=== PATIENT | male | born 1940 | race Caucasian/White ===

== ENCOUNTER 2017-05-10 10:21 | Day surgery (SDC) | payer MEDICARE ==
[2017-05-10] VITALS (18 sets, daily range): BP systolic 144–172; BP diastolic 69–85; PULSE 55–72; RESP 14–19; TEMP 97.7–98.3; O2SAT 93–98
[~2017-05-10] VITALS: Ht 177.8 cm; Wt 95.8 kg
[~2017-05-10 10:21] MED LIST: AMLO10TA2; ASPI81TA81; ATOR10TA15; CARV25TA; FISHCAP4 PO; GABA300C5; GABA300C5 PO; LOSA50TA; OXYC1TAB36; SERT-129
[2017-05-10] MEDS ORDERED: IOHEXOL 350 MG/ML 100 ML BTL (for Cath Lab) OTHER ONE (10:22)
[2017-05-10] MEDS ORDERED: NS 1000P @30 MLS/HR (KVO) IV SCH (11:00)
[2017-05-10] MEDS ORDERED: ASPIRIN 81 MG CHEW TAB PO SCH (11:15)
[2017-05-10 11:22] LABS: AUTOMATED NEUTROPHIL # 3.1 TH/MM3 (1.8-7.7); BASOPHIL % 0.9 % (0.0-2.0); EOSINOPHIL # 0.2 TH/MM3 (0-0.4); EOSINOPHIL % 3.2 % (0.0-4.0); HEMATOCRIT 37.4 % (39.0-51.0); HEMO FLAGS DIFF FINAL; LYMPHOCYTE # 1.7 TH/MM3 (1.0-4.8); MEAN CELL VOLUME 90.1 FL (80.0-100.0); MEAN CORPUSCULAR HGB CONC 34.4 % (32.0-36.0); NEUT % 54.9 % (16.0-70.0); PLATELET COUNT 199 TH/MM3 (150-450); RED BLOOD COUNT 4.14 MIL/MM3 (4.50-5.90); RED CELL DISTRIBUTION WIDTH 12.6 % (11.6-17.2); WHITE BLOOD COUNT 5.6 TH/MM3 (4.0-11.0)
[2017-05-10 11:27] LABS: INTERNATIONAL NORMALIZED RATIO 1.1 RATIO; PROTHROMBIN TIME - PATIENT 11.7 SEC (9.8-11.6)
[2017-05-10 11:35] LABS: BICARBONATE 27.1 MEQ/L (21.0-32.0); POTASSIUM 4.1 MEQ/L (3.5-5.1)
[2017-05-10] MEDS ORDERED: ATOR10TA15 PO (11:38)
[2017-05-10] MEDS ORDERED: CARV25TA PO (11:38)
[2017-05-10] MEDS ORDERED: CALC250T PO (11:38)
[2017-05-10] MEDS ORDERED: LOSA50TA PO (11:38)
[2017-05-10] MEDS ORDERED: ZOLO100T PO (11:38)
[2017-05-10] MEDS ORDERED: POTASOL PO (11:38)
[2017-05-10] MEDS ORDERED: PERC10TA27 PO (11:38)
[2017-05-10] MEDS ORDERED: ECASA81 PO (11:38)
[2017-05-10] MEDS ORDERED: AMLO5 PO (11:38)
[2017-05-10] MEDS ORDERED: NITR400A3 SL (11:38)
[2017-05-10] MEDS ORDERED: GABA300C5 PO (11:38)
[2017-05-10] MEDS ORDERED: VITA100064 PO (11:38)
[2017-05-10] MEDS ORDERED: HEPARIN-NS/PF INJ 1,000 ML ONE (11:49)
[2017-05-10] MEDS ORDERED: MIDAZOLAM HCL 2 MG/2 ML VIAL ONE (11:53)
[2017-05-10] MEDS ORDERED: FUROSEMIDE 40 MG/4 ML VIAL ONE (12:34)
[2017-05-10] MEDS ORDERED: HEPARIN SODIUM - IV 10,000 UNITS/10 ML VIAL ONE (12:51)
[2017-05-10] MEDS ORDERED: TIROFIBAN INFUSION INJ 250 ML IV ONE (13:02)
[2017-05-10] MEDS ORDERED: CLOPIDOGREL 300 MG TAB ONE (13:02)
--- NOTE | 2017-05-10 13:17 | CATHPROC ---
[facility] HIS Report Study Information Study Number Admission Scheduled Start Study Start [id number] May 10 2017 10:21AM 05/10/2017 May 10 2017 11:41AM [place] [facility] Catheterization Admit Source Facility Department Other [facility] - Electrical Design Engineer Physician and Clinical Staff Initial Glynn Sanchez Probation ManagerSatya Rodriguez,DEBBIE Probation ManagerDorcas Deluna RN Other cathlab, cathlab Recorder Donta Flores RCIS(BS) Scrub Anyi Matos,MARINE FIRER TECH2 Procedures Performed Procedure Location (Site) Vessel Name Coronary Angiograms LCA Left Coronary Coronary Angiograms RCA Right Coronary Coronary Angiograms HARMAN-LAD Left Coronary Coronary Angiograms SVG-LCX CIRC Coronary Angiograms SVG-RCA Right Coronary LV Gram-hand inj. LV LV Ventricle Stent LEFT MAIN ARTERY-(11 Left Coronary Wire insertion Fem Art (right) Femoral Art Equipment Time Millinery Blocker Description Size Mfg Part Number Used/Scraped [id number] 12:48 CROWDER [employer] WIRE, ASAHI PROWATER 180CM 180CM Used *[id number] 12:01 MELENDEZ KNIGHT SWAN YOON CATHETER FR 7 Used *[id number] TRANSDUCER, TRUWAVE [id number] 11:41 MELENDEZ KNIGHT * Used W/STOCKCOCK *[id number] 538-420 *[id number] 538-421 *[id number] *[id number] *[id number] 11:41 Solulink INDUSTRIES PACK, CCL CUSTOM * Used *[id number] 11:41 Solulink PACER PEN, SKIN DUAL W/ RULER * Used *[id number] 12:56 MEDTRONIC STENT, 4.0 9 INTEGRITY 4.0 9 [id number] Used [id number] 12:48 [employer] Factory MEDICAL 30 CRUZ INDEFLATOR Used *[id number] [id number]-6F-- 12:51 [employer] MEDICAL SHEATH, FR6.5 PRELUDE 11CM FR 6.5 038ACT Used *[id number]-6F-- 12:52 [employer] MEDICAL SHEATH, FR6.5 PRELUDE 11CM FR 6.5 038ACT Used *[id number] 11:41 [employer] MEDICAL WIRE, 3MMJ .035 180CM 180CM Used *[id number] 11:41 [facility], 4 PORT * Used *[id number] 11:41 NYCOMED OMNIPAQUE, 350 MG, 150ML 150ML [id number] Used [id number] 11:41 [employer] BLANKET,WARM AIR CCL * Used *[id number] 11:41 TERUMO MEDICAL SHEATH, FR4 TERUMO (10CM) FR 4 Used *[id number] 12:53 TERUMO MEDICAL SHEATH, FR6 TERUMO (10CM) FR 6 Used *[id number] 12:01 TERUMO MEDICAL SHEATH, FR7 TERUMO (10CM) FR 7 Used *[id number] Equipment Model, Serial, Lot Number and Expiration Data Description Model Number Serial Number Lot Number Expiration Date STENT, 4.0 9 INTEGRITY [id number] 11-28-2018 History: Current Medications Medication Dosage/Unit Route Frequency Last Date/Time Taken Beta Diamond CRESTOR NORVASC History: Allergies Allergy Reaction lisinopril cyclobenzaprine History: Risk Factors Family History of Hypertension Dyslipidemia Previous NM Previous Heart Failure Premature CAD Yes Yes No Yes No Prior Valve Prior PCI Prior PCIDate Prior CABG Prior CABGDate Surgery No Yes 06/25/2010 Yes 06/25/2007 Cerebrovascular Peripheral Artery Chronic Lung On Dialysis Diabetes Disease Disease Disease No No No No No History: Symptoms/Diagnosis Selection Items SOB History: Stress Tests Stress or Imaging Studies Performed Yes Standard Exercise Stress Test No Stress Echo No Stress Test SPECT Stress Test SPECT Result Stress Test SPECT Ischemia Risk/Extent Yes Positive Intermediate Stress Test CMR No Cardiac CTA Coronary Calcium Score No No History: Other Disease Selection Items CAD History: NM/CV Data Previous Cath Date 06/25/2012 History: Other Current Smoker No Labs Hgb (g/dl) Hct (%) WBC (l/cumm) Platelets (thousands) 11.60-17.00 35.00-51.00 4.00-11.00 150.00-450.00 12.9 37.4 5.6 199 Creatinine (mg/dl) 0.50-1.30 Not Drawn INR (PTT:PT) 0.90-1.10 1.1 CPK-MB (ng/ML) 0.50-3.60 Not Drawn Medication Medication Total Dose (Bolus/Oral) Medication Total Dosage/Unit 1% XYLOCAINE 20 mL AGGRASTAT BOLUS 48.4 mL FENTANYL 25 mcg HEPARIN 6700 units PLAVIX 600 mg VERSED 2 mg Medications (Bolus/Oral) Medication Time Given Dosage/Unit Administered By Reason 05/10/2017 12:21:07 VERSED 1 mg Satya Salinas PM 1 mg VERSED given in lab by Satya Salinas RN in Left Hand via Peripheral IV. Ordered by Angel Kraft rthurSteph 05/10/2017 12:25:34 VERSED 1 mg Dorcas Webster PM 1 mg VERSED given in lab by Dorcas Webster RN in Left Hand via Peripheral IV. Ordered by Angel Kraft rthurSteph 05/10/2017 12:25:35 FENTANYL 12.5 mcg Dorcas Webster PM 12.5 mcg FENTANYL given in lab by Dorcas Webster RN in Left Hand via Peripheral IV. Ordered by Glynn Nguyen. 05/10/2017 12:26:00 1% XYLOCAINE 20 mL Glynn Kraft PM 20 mL 1% XYLOCAINE given in lab by Glynn Kraft in Right Groin via Subcutaneous. 05/10/2017 12:51:35 HEPARIN 6700 units Dorcas Webster PM 6700 units HEPARIN given in lab by Dorcas Webster RN in Left Hand via Peripheral IV. Ordered by Glynn Sellers. AGGRASTAT BOLUS 05/10/2017 1:05:02 PM 48.4 mL Dorcas Webster 48.4 mL AGGRASTAT BOLUS given in lab by Dorcas Webster RN in Left Hand via Peripheral IV. Ordered by Glynn Kraft. FENTANYL 05/10/2017 1:06:09 PM 12.5 mcg Dorcas Webster 12.5 mcg FENTANYL given in lab by Dorcas Webster RN in Left Hand via Peripheral IV. Ordered by Glynn Nguyen. PLAVIX 05/10/2017 1:10:02 PM 600 mg Dorcas Webster 600 mg PLAVIX given in lab by Dorcas Webster RN via Oral. Ordered by Glynn Kraft. Medication (Drip) Medication Time Given Dosage/Unit Concentration/Unit Diluent (ml) Solution AGGRASTAT DRIP 05/10/2017 1:07:40 PM 0.075 mcg/kg/min 12.5 mg 250 NaCl .9 0.075 mcg/kg/min AGGRASTAT DRIP given in lab by Dorcas Webster DEBBIE in Left Hand via Peripheral IV. Pu mp/Drip Flow = 8.7 ml/hr using NaCl .9 with a concentration of 12.5 mg in 250 ml. Ordered by Glynn Kraft. 05/10/2017 11:40:59 IV Solutions 0 mL (IV) 500 NaCl .9 AM Patient arrived on IV Solutions given by cathlab, cathlab in Left Hand via Peripheral IV. Pump/Drip F low = 20 ml/hr using NaCl .9. Ordered by Glynn Kraft. Initial Case Assessment Cardiovascular HR Rhythm NIBP Chest Pain 61 NSR 166/89 0 Edema Present Skin color Skin None Normal Warm Dry Circulatory - Right Pulses Dorsalis Pedis Femoral 1 1 Scale (0,1,2,3,4,d) Circulatory - Left Pulses Dorsalis Pedis Femoral 1 1 Scale (0,1,2,3,4,d) Neurological State Oriented to time-place- Alert Moves all extremities person Respiration - General Respiration Rate SpO2 (%) (B/min) 15 96 Final Case Assessment Cardiovascular HR Rhythm NIBP Chest Pain 63 NSR 192/95 0 Edema Present Skin color Skin None Normal Warm Dry Circulatory - Right Pulses Dorsalis Pedis Femoral 1 1 Scale (0,1,2,3,4,d) Circulatory - Left Pulses Dorsalis Pedis Femoral 1 1 Scale (0,1,2,3,4,d) Neurological State Oriented to time-place- Alert Moves all extremities person Respiration - General Respiration Rate SpO2 (%) (B/min) 15 96 Chronological Log Time Study Chronological Log 11:40:51 Patient arrived via Bed. 11:40:51 Patient Name, D.O.B, / Armband Verified By R.N. 11:40:52 Consent signed by the physician and the patient and verified by the Electrical Design Engineer staff. 11:40:52 Pre-op and post- op instructions given; patient acknowledges understanding of instructions. 11:40:53 Verbal Stimulation=2 Physical Stimulation=2 Airway=2 Respiration=2 TOTAL=8. (0=absent, 1=li mited, 2=present) 11:40:54 Presedation assessment performed by Electrical Design Engineer RN. 11:40:55 Immediate Presedation assesment performed by physician. 11:40:56 Patient has been NPO for More than 6Hrs. 11:40:56 Skin Breakdown- NONE PER PATIENT 11:40:58 Patient Warmer Placed on the Table. 11:40:59 Sai Prominences Protected 11:40:59 A # 20 IV was noted in the Hand (left). Grade = 0 Patient arrived on IV Solutions given by cathlab, cathlab in Left Hand via Peripheral IV. Pump/ Drip Flow = 20 ml/hr 11:40:59 using NaCl .9. Ordered by Glynn Kraft. 11:41:00 History and physical on the chart or being dictated. 11:53:28 Reference ECG taken Vitals capture started with the following parameters, Patient=Adult, Interval=5 min, Initial Pr fkizie=160 mmHg, 11:53:33 Deflation Rate=5 mmHg, Cuff placed on Left Arm Assessment: Initial Case, HR=61 BPM, Rhythm=NSR, GHMH=741/89 mmhg, Chest Pain=0, Edema=None, Color=Normal, Skin = Warm, Dry Right Pulses: Fantasma Ped=1, Femoral=1 11:53:34 Left Pulses: Fantasma Ped=1, Femoral=1 Neurological: State=Alert, Ox3, WARNER Respiration: Resp=15 B/min, SpO2=96 % 11:54:41 Bilateral groins prepped with 2% chlorhexidine, and draped after a 3 minute waiting time. 11:54:43 HR=60 bpm, HLXA=670/89 mmhg, SpO2=96.0 %, Resp=16 B/min, Pain=0, Vani=10, Cordova=2 11:59:17 HR=60 bpm, KRMW=343/85 mmhg, SpO2=96.0 %, Resp=16 B/min, Pain=0, Vani=10, Cordova=2 12:00:09 Pressure channel 1 zeroed. 12:00:39 MD paged 12:04:14 HR=59 bpm, YAPY=816/72 mmhg, SpO2=96.0 %, Resp=16 B/min, Pain=0, Vani=10, Cordova=2 12:09:17 HR=57 bpm, TUOZ=860/75 mmhg, SpO2=97.0 %, Resp=11 B/min, Pain=0, Vani=10, Cordova=2 12:14:20 HR=60 bpm, IEKB=883/80 mmhg, SpO2=96.0 %, Resp=15 B/min, Pain=0, Vani=10, Cordova=2 12:18:42 MD arrived. 12:18:45 Contrast Scanned 12:18:45 Immediate Presedation assesment performed by physician. 12:19:19 HR=61 bpm, CAHL=987/77 mmhg, SpO2=95.0 %, Resp=15 B/min, Pain=0, Vani=10, Cordova=2 12:21:07 1 mg VERSED given in lab by Satya Salinas, DEBBIE in Left Hand via Peripheral IV. Ordered by Glynn Abreu. 12:24:20 HR=60 bpm, VBWI=530/80 mmhg, SpO2=96.0 %, Resp=15 B/min, Pain=0, Vani=10, Cordova=2 Time Out. Correct patient, correct procedure, correct physician, power injector not loaded with contrast with surgical 12:24:44 team present. Time Out Concurred by MD and individual staff in procedure. 12:24:56 Case Start 12:24:57 Verbal Stimulation=2 Physical Stimulation=2 Airway=2 Respiration=2 TOTAL=8. (0=absent, 1=li mited, 2=present) 12:25:34 1 mg VERSED given in lab by Dorcas Webster, DEBBIE in Left Hand via Peripheral IV. Ordered by Glynn Abreu. 12:25:35 12.5 mcg FENTANYL given in lab by Dorcas Webster, DEBBIE in Left Hand via Peripheral IV. Ordere d by Glynn Kraft. 12:26:00 20 mL 1% XYLOCAINE given in lab by Glynn Kraft in Right Groin via Subcutaneous. 12:27:10 Access site was Right Femoral Vein. 12:27:16 A SHEATH, FR7 TERUMO (10CM) FR 7 was advanced into the Fem Vein (right) using the Percutane ous technique. 12:27:43 Access site was Right Femoral Artery. 12:27:47 A SHEATH, FR4 TERUMO (10CM) FR 4 was advanced into the Fem Art (right) using the Percutaneo us technique. 12:27:54 A SWAN YOON CATHETER FR 7 was inserted via Fem Art (right) 12:29:22 HR=61 bpm, NVBL=718/83 mmhg, SpO2=95.0 %, Resp=12 B/min, Pain=0, Vani=10, Cordova=2 Recorded Pressure: PCW, HR=60, Condition=Condition 1 12:29:32 (Pulmonary Capillary Wedge) PCW / 12:29:39 Saturation: Site=Ao (Aorta) , O2=96.5 %, Hgb=12.9 gm/dl, Condition=Condition 1. Used in mark culation. 12:30:40 Saturation: Site=PA (Pulmonary Artery) , O2=68.5 %, Hgb=12.9 gm/dl, Condition=Condition 1. Used in calculation. Recorded Pressure: MPA, HR=59, Condition=Condition 1 12:31:21 (Main Pulmonary Artery) MPA 49/18/33 Recorded Pressure: RV, HR=66, Condition=Condition 1 12:31:36 (Right Ventricle) RV 45/5/16 Recorded Pressure: RA, HR=62, Condition=Condition 1 12:31:54 (Right Atrium) RA 12:32:16 Saturation: Site=RA (Right Atrium) , O2=68.3 %, Hgb=12.9 gm/dl, Condition=Condition 1. Used in calculation. 12:32:28 Catheter was removed A JR 4.0 INFINITI CATHETER FR 4 was advanced over a wire. OMNIPAQUE, 350 MG, 150ML 150ML was us ed for 12:32:32 injections. 12:34:21 HR=61 bpm, DOIZ=582/83 mmhg, SpO2=94.0 %, Resp=20 B/min, Pain=0, Vani=10, Cordova=2 Recorded Pressure: LV, HR=63, Condition=Condition 1 12:34:22 (Left Ventricle) LV 170/14/26 12:34:26 The LV was manually injected with 10 cc's and visualized. OMNIPAQUE, 350 MG, 150ML 150ML us ed. Recorded Pressure: LV, Ao, HR=59, Condition=Condition 1 12:34:43 (Left Ventricle) LV 167/11/20, (Aorta) Ao 160/64/102 Recorded Pressure: Ao, HR=59, Condition=Condition 1 12:34:54 (Aorta) Ao 156/58/99 12:36:41 The RCA was injected and visualized at various angles. OMNIPAQUE, 350 MG, 150ML 150ML used . 12:36:56 The SVG-LCX was injected and visualized at various angles. OMNIPAQUE, 350 MG, 150ML 150ML u sed. 12:37:31 The SVG-RCA was injected and visualized at various angles. OMNIPAQUE, 350 MG, 150ML 150ML u sed. 12:38:40 The HARMAN-LAD was injected and visualized at various angles. OMNIPAQUE, 350 MG, 150ML 150ML used. 12:39:19 Catheter was removed 12:39:22 HR=61 bpm, HGUC=318/80 mmhg, SpO2=95.0 %, Resp=10 B/min, Pain=0, Vani=10, Cordova=2 A JL 4.0 INFINITI CATHETER FR 4 was advanced over a wire. OMNIPAQUE, 350 MG, 150ML 150ML was us ed for 12:39:41 injections. 12:41:01 The LCA was injected and visualized at various angles. OMNIPAQUE, 350 MG, 150ML 150ML used . 12:41:10 Catheter was removed 12:41:42 Catheter(s) removed without difficulty 12:41:47 Cine recording checked. 12:41:49 Contrast Scanned 12:41:51 Verbal Stimulation=2 Physical Stimulation=2 Airway=2 Respiration=2 TOTAL=8. (0=absent, 1=li mited, 2=present) 12:43:13 Arterial Sheath removed; pressure applied to access site. 12:44:21 HR=59 bpm, GOJY=832/81 mmhg, SpO2=94.0 %, Resp=15 B/min, Pain=0, Vani=10, Cordova=2 12:49:22 HR=60 bpm, IYLA=183/80 mmhg, SpO2=95.0 %, Resp=20 B/min, Pain=0, Vani=10, Cordova=2 12:51:12 Access site was Right Femoral Artery. 12:51:15 A SHEATH, FR6 TERUMO (10CM) FR 6 was advanced into the Fem Art (right) using the Percutaneo us technique. 12:51:35 6700 units HEPARIN given in lab by Dorcas Webster, DEBBIE in Left Hand via Peripheral IV. Order ed by Glynn Kraft. A XB 4.0 GUIDE CATHETER FR 6 was advanced over a wire. OMNIPAQUE, 350 MG, 150ML 150ML was used for 12:53:09 injections. 12:54:25 HR=65 bpm, WQUL=470/73 mmhg, SpO2=94.0 %, Resp=20 B/min, Pain=0, Vani=10, Cordova=2 12:56:21 Catheter was removed A XB 3.5 GUIDE CATHETER FR 6 was advanced over a wire. OMNIPAQUE, 350 MG, 150ML 150ML was used for 12:57:20 injections. 12:57:25 A WIRE, ASAHI PROWATER 180CM 180CM was inserted via Fem Art (right). 12:58:44 Interventional wire has crossed the lesion An STENT, 4.0 9 INTEGRITY 4.0 9 Bare Metal Stent was inserted through a XB 3.5 GUIDE CATHETER F R 6 over a 12:58:50 WIRE, ASAHI PROWATER 180CM 180CM. 13:00:07 HR=70 bpm, JGVQ=948/95 mmhg, SpO2=95.0 %, Resp=14 B/min, Pain=0, Vani=10, Cordova=2 A STENT, 4.0 9 INTEGRITY 4.0 9 was deployed using a 30 CRUZ INDEFLATOR at 11 atmospheres for 15 seconds in the 13:01:01 LEFT MAIN ARTERY-(11. 13:01:27 Re-inflated the stent balloon in the LEFT MAIN ARTERY-(11 to 16 CRUZ for 11 seconds. 13:02:31 Delivery device removed 13:02:45 Activated Clotting Time Drawn 13:02:54 Wire removed 13:02:55 Catheter was removed 13:02:57 Case End Assessment: Final Case, HR=63 BPM, Rhythm=NSR, QJAY=195/95 mmhg, Chest Pain=0, Edema=None, Col or=Normal, Skin = Warm, Dry Right Pulses: Fantasma Ped=1, Femoral=1 13:03:00 Left Pulses: Fantasma Ped=1, Femoral=1 Neurological: State=Alert, Ox3, WARNER Respiration: Resp=15 B/min, SpO2=96 % 13:03:48 Catheter(s) removed without difficulty 13:03:50 In the Fem Vein (right) the SHEATH, FR7 TERUMO (10CM) FR [address] by Glynn Martinez. 13:03:56 In the Fem Art (right) the SHEATH, FR6 TERUMO (10CM) FR [address] by Glynn Kraft. 13:04:01 Sterile dressing applied to site 13:04:01 No case complications noted. 13:04:02 Cine recording checked. 13:04:04 Holding Area notified of successful intervention. 13:04:05 Bedside Report will be given. 13:04:06 Implantable Device card placed in patient's chart. 13:04:07 Contrast Scanned 13:04:31 HR=60 bpm, URLM=740/76 mmhg, SpO2=95.0 %, Resp=13 B/min, Pain=0, Vani=10, Cordova=2 13:04:41 A Left and Right Heart Cath was performed. 48.4 mL AGGRASTAT BOLUS given in lab by Dorcas Webster, DEBBIE in Left Hand via Peripheral IV. Ord ered by Abena 13:05:02 Glynn. 13:06:09 12.5 mcg FENTANYL given in lab by Dorcas Webster RN in Left Hand via Peripheral IV. Order ed by Glynn Kraft. 0.075 mcg/kg/min AGGRASTAT DRIP given in lab by Dorcas Webster RN in Left Hand via Peripheral IV. Pump/Drip Flow 13:07:40 = 8.7 ml/hr using NaCl .9 with a concentration of 12.5 mg in 250 ml. Ordered by Fantasma Kraft 13:08:04 ACT (Normal Range 90-180) = 279 13:09:26 HR=62 bpm, AZPW=357/77 mmhg, SpO2=93.0 %, Resp=12 B/min, Pain=0, Vani=10, Cordova=2 13:10:02 600 mg PLAVIX given in lab by Dorcas Webster, DEBBIE via Oral. Ordered by Glynn Kraft. 13:14:28 Patient moved to [facility] End Study - Contrast Media Used In Study Contrast Total Opened (mL) Total Used (mL) Total Wasted (mL) Omnipaque 110 110 0 End Study - Radiation Exposure Fluoro Time (minutes) 6.8 End Study - Sheaths Sheaths Pulled By Sheath Hold Time (min) Anyi Matos 20 End Study - Patient Disposition Complications Transferred To Interventional Outcome No Electrical Design Engineer Holding successful
[2017-05-10] MEDS ORDERED: TIROFIBAN INFUSION INJ 250 ML IV SCH (13:42)
[2017-05-10] MEDS ORDERED: MISC INFORMATION XX ONE (13:45)
[2017-05-10] MEDS ORDERED: CLOPIDOGREL 300 MG TAB PO ONE (13:45)
[2017-05-10] MEDS ORDERED: SODIUM CHLORIDE 0.9% FLUSH 10 ML FLUSH IV FLUSH PRN (13:45)
[2017-05-10] MEDS ORDERED: ATROPINE SULFATE 1 MG/10 ML SYRINGE ONE (16:55)
[2017-05-10] MEDS: SODIUM CHLORIDE 0.9% FLUSH 10 ML FLUSH IV FLUSH SCH (20:19)
[2017-05-11] VITALS (9 sets, daily range): BP systolic 136–155; BP diastolic 58–78; PULSE 62–82; RESP 16; TEMP 97.1–99.2; O2SAT 91–96
[2017-05-11 05:24] LABS: BASOPHIL % 0.8 % (0.0-2.0); EOSINOPHIL # 0.2 TH/MM3 (0-0.4); EOSINOPHIL % 2.5 % (0.0-4.0); HEMATOCRIT 35.3 % (39.0-51.0); HEMO FLAGS DIFF FINAL; LYMPH % 20.3 % (9.0-44.0); LYMPHOCYTE # 1.2 TH/MM3 (1.0-4.8); MEAN CORPUSCULAR HEMOGLOBIN 31.8 PG (27.0-34.0); MEAN CORPUSCULAR HGB CONC 35.3 % (32.0-36.0); NEUT % 65.4 % (16.0-70.0); PLATELET COUNT 197 TH/MM3 (150-450); RED BLOOD COUNT 3.92 MIL/MM3 (4.50-5.90); RED CELL DISTRIBUTION WIDTH 12.8 % (11.6-17.2); WHITE BLOOD COUNT 6.1 TH/MM3 (4.0-11.0)
[2017-05-11 05:40] LABS: BICARBONATE 27.5 MEQ/L (21.0-32.0); POTASSIUM 4.1 MEQ/L (3.5-5.1)
[2017-05-11] MEDS: SODIUM CHLORIDE 0.9% FLUSH 10 ML FLUSH IV FLUSH SCH (08:25)
--- NOTE | 2017-05-11 08:43 | MA ---
cc: LEO BOLAÑOS M.D. DATE 05/10/17 PROCEDURE PERFORMED 1. Right heart catheterization. 2. Left heart catheterization. 3. Left ventriculography. 4. Coronary angiography. 5. Direct PCI bare metal stent of the distal left main. INDICATION New onset severe dyspnea on exertion, CHF, [place] Heart Association class III congestive heart failure, anginal equivalent, unstable angina. [place] Cardiovascular Society III angina, moderate-sized fixed defect in the posterior wall, inferior wall, apex, EF 63%. History of coronary artery bypass graft. PROCEDURE The patient was brought to the cardiac catheterization laboratory, prepped and draped in the usual sterile fashion. 10 cc of 1% lidocaine was used to locally anesthetize the right common femoral artery. A 4-[place] sheath placed in the right common femoral artery, 7-[place] sheath placed in the right common femoral vein. Right heart catheterization was performed first with the following findings: Pulmonary capillary wedge pressure 26/31/24, PA pressure 49/18/33, RV pressure 45/5-___ 0:50. RA pressure 23/1-16. On room air the FA sat 96.5%, PA sat 68.5%, RA sat 68.3%, cardiac output by Elizabeth is 5.5 liters per minute. Cardiac index by Elizabeth is 2.5 liters per meter squared per minute and SVR is 1214 dynes. Left heart catheterization was then performed with a 4 [place] JR-4 and JL4 catheter with the following findings: LV pressure is 167/20-25, ejection fraction 60%. The right coronary artery is dominant. There is a 95% stenosis in the mid segment. It is occluded in the [id number]-go-[id number] segment. Vein graft to obtuse marginal vessel is widely patent. There is a bifurcation just after the graft insertion site, vessel is medium in size, probably 2.5 mm in diameter. There is retrograde filling to the left circumflex vessel with competitive flow seen in the AV groove, left circumflex vessel which then goes on to supply a small mid to distal marginal vessel. The vein graft to the right coronary artery is widely patent, is very ectatic but no significant obstruction. the right PDA. There is retrograde filling to the distal right coronary artery and filling of a small to medium size right posterolateral artery which does not have any obvious obstructive disease. The HARMAN to the LAD is widely patent. The LAD beyond the graft insertion site is transapical with no significant obstructive diseases. Retrograde filling to a point of occlusion in the proximal LAD with filling of a small diagonal vessel. The left main coronary artery has a distal 60% stenosis with what appears to be a significant filling defect just proximal to just to the ostium of the left circumflex vessel. Competitive flow is seen in the first obtuse marginal vessel. There is sequential diffuse disease in the proximate AV groove, left circ up to 40-50% angiographically. There is a small obtuse marginal vessel with no significant obstructive disease. In the mid AV groove, left circ there is a small to medium sized posterolateral artery which approaches the apex which has no significant obstructive disease. Beyond this vessel the left circumflex occluded with [id number] collaterals supplying a small distal posterolateral artery which is probably 1.5 mm in diameter. There is a large ramus intermedius vessel beyond the left main which has a proximal bifurcation. The LAD has severe diffuse disease in the proximal segment up to 70% angiographically. It is occluded after a small diagonal vessel with competitive flow seen thereafter. There is a high diagonal vessel which is a large vessel, probably at least 3 mm in diameter and which approaches the apex which is actually transapical. DISCUSSION The left main supplies a large diagonal artery, the proximal LAD and at least a medium-sized marginal vessel which approaches the apex. I think this is a large amount of jeopardized myocardium and potentially could explain the patient's severe diastolic dysfunction with LVEDP of 25 and his severe symptoms. I do think it is reasonable to attempt PCI of the distal left main coronary artery as at least 60% stenotic angiographically. I have deferred FFR given the patient's creatinine of 1.89 and I do think the risk, benefit ratio is more favorable toward deferring FFR as this would lead to more contrast use. Therefore, I proceeded directly to PCI. 6-[place] sheath was exchanged for a 4-[place]. 7 units per kilo of heparin was given. ACT is 279. 6-[place] XB 3.5 guide and a 0.014 ProWater guidewire was placed into the distal diagonal vessel. A 409 Integrity stent was used to directly stent the distal left main, one inflation 10 atmospheres for 20 seconds. The stent appeared to be angiographically under deployed, therefore, the balloon which had not been moved after deflation was reinflated to 16 atmospheres for 20 seconds. Stenosis went from 60% to residual 20%. CONCLUSION 1. [place] Heart Association class III congestive heart failure with severe diastolic dysfunction. LVDP of 25 with preserved LV systolic function of 60%. 2. Severe three-vessel coronary artery disease. 3. 3/3 grafts patent. 4. 60% distal left main disease. 5. Moderate pulmonary hypertension with PA systolic pressure 49. 6. Moderate to severely elevated pulmonary capillary wedge pressure with V-wave to 31 suggesting the possibility of mitral valve regurgitation. 7. Successful direct PCI bare metal stent of the distal left main from 60% to residual 20%. 8. Recommend Plavix 600 milligrams load, then 75 milligrams a day for 12 to 15 months, aspirin 162 milligrams daily. Aggrastat drip per renal dose protocol. 9. Note, total contrast was 110 cc. The patient was prehydrated with a liter of normal saline. 10. 40 of IV Lasix given in the earthmoving labourer. 11. The patient will follow up me on Sunday, May 14, will determine whether or not the patient's dyspnea has improved with PCI and Lasix. Depending on symptomatic response may need to either place him on standing dose Lasix or if he feels significantly better simply with PCI can limit his diuretic dose which would lower his risk for kidney injury. He is currently on HCTZ 25. MD DESTINI Perea/ZOHREH /1:13 PM /8:43 AM
[2017-05-11] MEDS ORDERED: CLOPIDOGREL 75 MG TAB PO SCH (09:00)
[2017-05-11] MEDS ORDERED: ASPIRIN 81 MG CHEW TAB PO SCH (09:00)
[2017-05-11] MEDS ORDERED: INFLUENZA VIRUS VACCINE (QUADRIVALENT) 0.5 ML SYR IM ONE (10:00)
[2017-05-11] MEDS ORDERED: PNEUMOCOCCAL POLYVALENT INJ 25 MCG/0.5 ML SYR IM ONE (10:00)
--- NOTE | 2017-05-11 16:37 | EKG ---
Date Performed: 05/10/2017 Time Performed: 11:18:22 PTAGE: 76 years EKG: Ectopic atrial bradycardia with first degree AV block Right bundle branch block Left axis d eviation Poor R-wave progression which may be due to previous anterior UT Cannot exclude inferior UT of undetermined age Nonspecific T-wave change Compared to previous tracing, these changes are new. Ab normal ECG PREVIOUS TRACING : 08/24/2003 04.08 DOCTOR: Jorge Wise Interpretating Date/Time 05/11/2017 16:36:26
--- NOTE | 2017-05-11 16:39 | EKG ---
Date Performed: 05/10/2017 Time Performed: 14:35:56 PTAGE: 76 years EKG: First degree AV block Right bundle branch block Left axis deviation Probable anterior NV of undetermined age Cannot exclude inferior NV of undetermined age Nonspecific T-wave change Compared t o previous tracing, ectopic atrial rhythm replaced with Sinus rhythm Abnormal ECG PREVIOUS TRACING : 05/10/2017 11.18 DOCTOR: Jorge Wise Interpretating Date/Time 05/11/2017 16:38:21
--- NOTE | 2017-05-11 16:39 | EKG ---
Date Performed: 05/11/2017 Time Performed: 06:07:22 PTAGE: 76 years EKG: Sinus rhythm with 1st degree A-V block Left axis deviation RBBB with left anterior fascicular block Extensive inf arct - age undetermined Nonspecific T-wave change Abnormal ECG Since PREVIOUS TRACING , no significant change noted PREVIOUS TRACIN05/10/2017 14.35 DOCTOR: Jorge Wise Interpretating Date/Time 05/11/2017 16:38:54
== END 2017-05-11 12:03 | disposition home or self-care (01) ==
LOC: HDOC 10:21 → HDIC 10:22 → HCIS 15:01 → HDOC 05-11 12:03
PROVIDERS: ATTEND Internal Medicine Interventional Cardiology
DX: I25.110 Atherosclerotic heart disease of native coronary artery with unstable angina pectoris (principal); I50.9 Heart failure, unspecified; I27.20 Pulmonary hypertension, unspecified; Z95.1 Presence of aortocoronary bypass graft; Z79.82 Long term (current) use of aspirin; Z23 Encounter for immunization
CPT/HCPCS: 80048; 82550; 85002; 85025; 85610; 90732; 92928; 93005; 93460; C1769; C1876; C1887; C1893; J1644; J1940; J2250; J3010; J3246; Q2038; 90686; J0461; Q9967